=== PATIENT | male | born 1990 | race African-American/Black ===

== ENCOUNTER 2018-01-10 16:52 | Emergency (ER) | payer BC ==
[~2018-01-10] VITALS: Ht 185.4 cm; Wt 100.0 kg
[2018-01-10] MEDS ORDERED: LACTULOSE 20G/30ML UDC PO ONE (18:00)
[2018-01-10 18:29] LABS: *AMPHETAMINES SCREEN URINE NEGATIVE (NEGATIVE); *BARBITURATES SCREEN URINE NEGATIVE (NEGATIVE)
[2018-01-10 18:30] LABS: *BENZODIAZEPINES SCREEN URINE NEGATIVE (NEGATIVE); *COCAINE SCREEN URINE NEGATIVE (NEGATIVE); METHADONE URINE SCREEN NEGATIVE (NEGATIVE); OPIATES URINE SCREEN NEGATIVE (NEGATIVE)
[2018-01-10 18:31] LABS: CANNABINOID URINE SCREEN NEGATIVE (NEGATIVE); PHENCYCLIDINE URINE SCREEN NEGATIVE (NEGATIVE)
[2018-01-10 18:32] LABS: CHLORIDE 100 mEq/L (98-107)
[2018-01-10 18:37] LABS: ETHANOL BLOOD < 10 mg/dL
[2018-01-10 20:02] VITALS: BP 134/79
== END 2018-01-10 20:11 | disposition home or self-care (01) ==
LOC: ER 16:52
DX: K72.90 Hepatic failure, unspecified without coma (principal); F31.9 Bipolar disorder, unspecified; K76.9 Liver disease, unspecified; K76.0 Fatty (change of) liver, not elsewhere classified; F10.10 Alcohol abuse, uncomplicated; F12.10 Cannabis abuse, uncomplicated; Z87.891 Personal history of nicotine dependence; Y90.9 Presence of alcohol in blood, level not specified
CPT/HCPCS: 36415; 80048; 80305; 82140; 99283; G0482

== ENCOUNTER → 2022-10-27 | Emergency (ER) | payer BC ==
[~2022-10-27] MED LIST: HALOPERIDOL LACTATE 5MG/ML VIAL IM STA; LORAZEPAM 2MG/ML CPJ IM STA
== END | disposition left against medical advice (07) ==
LOC: ER 13:44
DX: Z53.21 Procedure and treatment not carried out due to patient leaving prior to being seen by health care provider (principal)
CPT/HCPCS: J1630; J2060; Z7610